=== PATIENT | male | born 2000 | race Two or more races ===

== ENCOUNTER 2021-03-04 16:58 | Emergency (ER) | payer SELFPAY ==
[~2021-03-04] VITALS: Ht 170.2 cm; Wt 79.4 kg
[2021-03-04 20:08] VITALS: BP 155/93
== END 2021-03-04 21:13 | disposition home or self-care (01) ==
LOC: ER 16:58
DX: S69.82XA Other specified injuries of left wrist, hand and finger(s), initial encounter (principal); X58.XXXA Exposure to other specified factors, initial encounter; Y93.89 Activity, other specified; Y92.89 Other specified places as the place of occurrence of the external cause; Y99.8 Other external cause status
CPT/HCPCS: 29130; 73130

== ENCOUNTER 2023-12-26 20:49 | Emergency (ER) | payer OTHER ==
[~2023-12-26] VITALS: Ht 170.2 cm; Wt 79.2 kg
[2023-12-26 21:47] VITALS: BP 124/76; PULSE 73; RESP 16; O2SAT 97
== END 2023-12-26 23:00 | disposition left against medical advice (07) ==
LOC: ER 20:49
DX: R51.9 Headache, unspecified (principal); M54.2 Cervicalgia; Z53.21 Procedure and treatment not carried out due to patient leaving prior to being seen by health care provider; V89.2XXA Person injured in unspecified motor-vehicle accident, traffic, initial encounter; Y93.89 Activity, other specified; Y92.89 Other specified places as the place of occurrence of the external cause; Y99.8 Other external cause status

== ENCOUNTER 2024-12-08 22:05 | Emergency (ER) | payer OTHER ==
[~2024-12-08] VITALS: Ht 167.6 cm; Wt 85.2 kg
[2024-12-08 23:48] VITALS: BP 135/91; PULSE 75; RESP 20; TEMP 98.5; O2SAT 98
[2024-12-09] MEDS ORDERED: AMOX875T4 PO (00:08)
--- NOTE | 2024-12-09 00:09 | ED.PDOC ---
History of Present Illness(SKN HPI Comments 24-year-old male presents to ER for wound check. Patient reports that he was bit by a stray kitten on his right index finger 1 day go and presents to ER today for wound check. Denies any pain and presents to ER ambulatory on arrival, with steady gait, in no distress with 2 abrasions less than 1 cm in siz e noted to right index finger without any signs of infection appreciated. Denies fever, skin drainage or any further symptoms/complaints Chief Complaint: Animal Bite Time Seen by MD: 22:14 Primary Care Provider: UNKNOWN History of Present Illness: Nurses Notes, Medications, Allergies Allergies: Coded Allergies: NO KNOWN ALLERGIES (Unverified , 03/04/21) Home Meds Active Scripts Amoxicillin & Pot Clavulanate (Amoxicillin/Potassium Cla) 875 Mg Tab, 1 TAB PO BID for 7 Days, #14 TAB 0 Refills Prov:KELLY YAN 12/09/24 Information Source: Patient Mode of Arrival: Ambulatory Tetanus: UTD Past Medical History PAST MEDICAL HISTORY: Denies Surgical History: Denies all surgeries Family History Family History: Unknown Social History Smoker: Non-Smoker Alcohol: Denies ETOH Use Drugs: Denies Drug Use Lives In: Home Constitutional: denies: chills, diaphoresis, fatigue, fever, malaise, sweats, weakness, others EENTM: denies: blurred vision, double vision, ear bleeding, ear discharge, ear drainage, ear pain, ear ringing, eye pain, eye redness, hearing loss, mouth pain, mouth swelling, nasal discharge, nose bleeding, nose congestion, nose pain, photophobia, tearing, throat pain, throat swelling, voice changes, others Respiratory: denies: cough, hemoptysis, orthopnea, SOB at rest, shortness of breath, SOB with excertion, stridor, wheezing, others Cardiovascular: denies: chest pain, dizzy spells, diaphoresis, Dyspnea on exert ion, edema, irregular heart beat, left arm pain, lightheadedness, palpitations, PND, syncope, others Gastrointestinal: denies: abdomen distended, abdominal pain, blood streaked bowels, constipated, diarrhea, dysphagia, difficulty swallowing, hematemesis, melena, nausea, poor appetite, poor fluid intake, rectal bleeding, rectal pain, vomiting, others Genitourinary: denies: burning, dysuria, flank pain, frequency, hematuria, incontinence, penile discharge, penile sore, pain, testicle pain, testicle swelling, urgency, others Neurological: denies: dizziness, fainting, headache, left sided numbness, left sided weakness, numbness, paresthesia, pre-existing deficit, right sided numbness, right sided weakness, seizure, speech problems, tingling, tremors, weakness, others Musculoskeletal: denies: back pain, gout, joint pain, joint swelling, muscle pain, muscle stiffness, neck pain, others Integumetry: reports: others (As stated in HPI) Allergic/Immunocompromised: denies: Difficulty Healing, Frequent Infections, Hives, Itching, others Hematologic/Lymphatic: denies: anemia, blood clots, easy bleeding, easy bruising, swollen glands, others Endocrine: denies: excessive hunger, excessive sweating, excessive thirst, excessive urination, flushing, intolerance to cold, intolerance to heat, unexplained weight gain, unexplained weight loss, others Psychiatric: denies: anxiety, bipolar disorder, depression, hopeless, panic disorder, schizophrenia, sleepless, suicidal, others Physical Exam General Appearance: No Apparent Distress, Obese HEENT: PERRL/EOMI Neck: Full Range of Motion, Non-Tender, Normal Respiratory: Chest Non-Tender, Lungs Clear, No Accessory Muscle Use, No Respiratory Distress, Normal Breath Sounds Cardiovascular: No Murmur, No Gallop, Regular Rate/Rhythm Breast Exam: Deferred Gastrointestinal: NOT DONE Genitalia: Deferred Pelvic: Deferred Rectal: Deferred Extremities: Normal capillary refill, Normal range of motion Neurologic: Alert, No Motor Deficits, Normal Affect, Normal Mood, No Sensory Deficits Cerebellar Function: Normal Reflexes: Normal Skin: Dry, Warm, Other (2 abrasions less than 1 cm in size noted to right index finger without any signs of infection appreciated) Peripheral Pulses: 2+ Radial (R), 2+ Radial (L), 2+ Brachial (R), 2+ Brachial (L) Lymphatic: No Adenopathy Was a procedure done? Was a procedure done?: No Sedation Sedation?: No Differential Diagnosis (INTG) Differential Diagnosis: Abrasion Differential Diagnosis: Abscess Differential Diagnosis: Retained Foreign Body X-Ray, Labs, Meds, VS Vital Signs Date Time Temp Pulse Resp B/P (MAP) Pulse Ox O2 Delivery O2 Flow Rate FiO2 6/2/25 23:48 98.5 75 20 135/91 (106) 98 98.5 12/08/24 23:48 98 Room Air* 0 21 12/08/24 22:05 98.5 75 20 135/91 (106) 98 98.5 Advised to follow up with PCP in 1-2 days Patient verbalized understanding and agreeable with current plan of care Advised to return to ER immediately if symptoms worsen Time of 1ST Reevaluation: 23:40 Reevaluation 1ST: N/A Patient Education/Counseling: Diagnosis, Treatment, Prognosis, Need For Follow Up Family Education/Counseling: No Family Present Departure 1 Departure Time of Disposition: 00:02 Impression: Primary Impression: Cat bite of index finger Qualified Codes: S61.258A - Open bite of other finger without damage to nail, initial encounter; W55.01XA - Bitten by cat, initial encounter Disposition: HOME / SELF CARE / HOMELESS Condition: Stable e-Prescriptions Amoxicillin & Pot Clavulanate (Amoxicillin/Potassium Cla) 875 Mg Tab 1 TAB PO BID for 7 Days, #14 TAB 0 Refills Prov: KELLY YAN 12/09/24 Discharged With: Self Critical Care Note Critical Care Time?: No Stability Stability form required: No Heart Score Heart Score: Heart Score Response (Comments) Value History N/A 0 EKG N/A 0 Age N/A 0 Risk Factors N/A 0 Troponin N/A 0 Total 0 KELLY YAN Dec 09, 2024 00:09
== END 2024-12-09 00:15 | disposition home or self-care (01) ==
LOC: ER 22:09
DX: S60.410A Abrasion of right index finger, initial encounter (principal); Z79.899 Other long term (current) drug therapy; W55.01XA Bitten by cat, initial encounter; Y93.89 Activity, other specified; Y92.89 Other specified places as the place of occurrence of the external cause; Y99.8 Other external cause status